=== PATIENT | female | born 1995 ===

== ENCOUNTER 2019-09-04 20:21 | Emergency (ER) | payer OTHER, SELFPAY ==
[2019-09-04 20:25] VITALS: BP 128/92; PULSE 101; RESP 18; TEMP 36.7; O2SAT 98
--- NOTE | 2019-09-04 20:35 | W.ED.GENAD ---
Discharge Plan Disposition Patient Disposition: HOME Condition: Good Discharge Details Chief Complaint: SOB Clinical Impression: Asthma exacerbation, Bronchitis ED Provider: Miguel Newsome Home Meds and New Rx's Prescriptions: New ipratropium-albuterol 0.5 mg-3 mg(2.5 mg base)/3 mL solution for nebulization 3 ml IH Q6H Qty: 90 RF: 0 prednisone 50 MG tablet 50 mg PO DAILY Qty: 5 RF: 0 Continued albuterol sulfate 1.25 mg/3 mL Solution For Nebulization 1.25 mg inhalation PRN PRN (Reason: Respiratory Distress) RF: 0 albuterol sulfate 90 mcg/actuation Hfa Aerosol Inhaler 2 puff INHALATION PRN PRN (Reason: Respiratory Distress) RF: 0 Discharge Instructions Instructions: Asthma (ED), Acute Bronchitis (ED) Additional Instructions: At this time your signs and symptoms are clinically consistent with asthma exacerbation and bronchitis. There is no evidence of pneumonia on your chest x-ray. Please take the steroid and nebulizer treatments as directed. If you notice any worsening of your symptoms, or any new symptoms such as vomiting, diarrhea, fever, chills, shortness of breath, chest pain, numbness, weakness, or fainting , please return immediately to the emergency department for reevaluation. Please follow up with your primary care provider as soon as possible for reassessment and reevaluation. As always, it was a pleasure participating in your medical care today. Medical Decision Making Is a pleasant 24-year-old female who presents today for evaluation of cough, productive green sputum, mild shortness of breath. Is been present for the last 2 to 3 days, but notably worse in the last 12 hours. No red flags of hemoptysis, history of PE or DVT, or first-degree family history of PE or DVT. No risk factors of exogenous estrogen. No other significant abnormalities. No fever chills nuchal rigidity. Lung sounds demonstrate mild wheeze in the right. Oxygen saturation stable, initial triage vital signs are 101 for heart rate but she is in the 80s on assessment during exam. 98% O2 sats, respirations 18. Signs and symptoms appear consistent with a mild asthma exacerbation. Potential pneumonia versus bronchitis. PE is unlikely and clinically inconsistent with current exam. We will give steroids, breathing treatment, and reassess. 9:20 PM Patient is feeling much better after breathing treatments and steroids. She feels ready to go home. Chest x-ray negative for acute process. Oxygen/air movement in the lungs improved on reassessment. Patient feels very well and continues to maintain oxygen saturations in the high 90s. Signs and symptoms at this time clinically inconsistent with PE, and consistent with mild asthma exacerbation. Will give prescription for nebulizer treatments for home. She does have her mother's nebulizer machine. Will give 5-day steroid burst. PERC and Wells score are in the lowest risk categories. Diagnosis bronchitis with asthma exacerbation. Discussed red flags which to return. I have extensively reviewed the treatment plan and discharge instructions with the patient. I have addressed all patient concerns at this time. The patient was made aware of what symptoms to monitor for that would warrant a return to the emergency department. Discussed the plan with the patient, they demonstrate verbal understanding and agreement with our assessment and plan at this time. FINDINGS: Lungs: Unremarkable. No consolidation. Pleural space: Unremarkable. No pleural effusion. No pneumothorax. Heart/Mediastinum: Unremarkable. No cardiomegaly. Bones/joints: Unremarkable. IMPRESSION: No acute findings. Dictated and Authenticated by: Bc Whitlock MD. Ordering:MENDEZ Rivera MD HPI General Date/Time Provider Initiated Documentation: 09/04/19 20:25. HPI Narrative: This is a 24-year-old female with no significant past medical history except for reactive airway disease who presents today for evaluation of shortness of breath and cough. Patient states that for the last 3 to 4 days she has had a mild cough with productive green sputum. She denies fever or chills. She has been taking some nebulizer treatments at home which are her mother's. This has been improving her symptoms however over the last 12 hours she has noticed a significant worsening of her symptoms. She feels that she is having a harder time catching her breath and the nebulizers are not doing as much as they were. She denies any significant pleuritic chest pain, arm neck or shoulder pain. Denies PE risk factors such as recent long car rides, immobilization, recent surgery, prior history of DVT or PE, family history of PE or DVT, morbid obesity, exogenous estrogen and smoking, hemoptysis, history of cancer. She denies any hemoptysis. She denies any recent trauma. No other complaints at this time. No other modifying factors. Related Data Home Medications Medication Instructions Recorded Confirmed albuterol sulfate 1.25 mg INHALATION PRN PRN 09/04/19 09/04/19 albuterol sulfate 2 puff INHALATION PRN PRN 09/04/19 09/04/19 ipratropium-albuterol 3 ml IH Q6H #90 ml 09/04/19 prednisone 50 mg PO DAILY #5 tab 09/04/19 Previous Rx's Medication Instructions Recorded ipratropium-albuterol 3 ml IH Q6H #90 ml 09/04/19 prednisone 50 mg PO DAILY #5 tab 09/04/19 Allergies Allergy/AdvReac Type Severity Reaction Status Date / Time codeine Allergy Severe Nausea Unverified 09/04/19 20:30 amoxicillin Allergy Intermediate Skin Rash Unverified 09/04/19 20:30 tomato Allergy Mild Other (See Unverified 09/04/19 20:33 Comment) General Stated Complaint: SOB ALFREDO: 3 Review of Systems All systems reviewed & are unremarkable except as noted in HPI and below [facility] Medical History (Updated 09/04/19 @ 20:29 by Anahy Rios) Asthma (Chronic) Social History Smoking/Tobacco Use Status: Never Alcohol Intake: never Drug use: Never Substance use type: does not use Do you feel safe at home: Yes Do you feel safe in your relationship?: Yes Exam Narrative Exam Narrative: 1.Const: Well-nourished, Well-developed, appearing stated age 2.Eyes: PERRL, no conjunctival injection, and symmetrical lids. 3.ENT: Atraumatic external nose and ears. Moist MM. Neck: Symmetric, trachea midline, No thyromegaly. 4.CVS: +S1/S2, No murmurs or gallops. Peripheral pulses 2+ and equal in all extremities. Brisk capillary refill in all extremities. 5.RESP: Unlabored respiratory effort. Mild wheeze in the right lower lung mei. No rhonchi, no rales. 6.GI: Soft, Nontender/Nondistended, No hepatosplenomegaly. No guarding or rebound. 7.MSK: Normocephalic/Atraumatic, Extremities w/o deformity or ttp No cyanosis or clubbing, Normal movement of all extremities, no calf tenderness 8.Skin: Warm, Dry. No rashes or lesions. 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 Sensation grossly intact, no focal neurologic deficits. 10.Psych: (AAO) x3. Appropriate mood and affect Course Vital Signs Vital signs: Vital Signs Temperature 36.7 C 09/04/19 20:25 Pulse 101 H 09/04/19 20:25 Respiratory Rate 18 09/04/19 20:25 Blood Pressure 128/92 H 09/04/19 20:25 Pulse Oximetry 98 09/04/19 20:25 Temperature 36.7 C 09/04/19 20:25 Temperature Source Skin 09/04/19 20:25 Pulse 101 H 09/04/19 20:25 Respiratory Rate 18 09/04/19 20:25 Blood Pressure 128/92 H 09/04/19 20:25 Pulse Oximetry 98 09/04/19 20:25 Pain Level 3 09/04/19 20:25
[2019-09-04] MEDS: predniSONE 20 MG TAB 60 MG PO (20:40)
--- NOTE | 2019-09-04 20:48 | DI.RAD_ITS ---
EXAM: XR CHEST 2V PA LATERAL INDICATION: cough, productive sputum, r/o pneumonia. COMPARISON: No exams were available for comparison TECHNIQUE: 2D digital imaging was performed. FINDINGS: Cardiac and mediastinal contours have a normal appearance. The lungs are well inflated and clear. No infiltrate or effusion is seen. IMPRESSION: Negative chest x-ray.
[2019-09-04] MEDS: Albuterol/Ipratropium 3 ML UPD VIAL 9 ML UPD (20:50)
--- NOTE | 2019-09-04 20:53 | DI.VRAD_ITS ---
PROCEDURE INFORMATION: Exam: XR Chest, 2 Views Exam date and time: 09/04/2019 8:48 PM Age: 24 years old Clinical indication: Cough; Additional info: Productive cough, R/O pneumonia TECHNIQUE: Imaging protocol: XR of the chest Views: 2 views. COMPARISON: No relevant prior studies available. FINDINGS: Lungs: Unremarkable. No consolidation. Pleural space: Unremarkable. No pleural effusion. No pneumothorax. Heart/Mediastinum: Unremarkable. No cardiomegaly. Bones/joints: Unremarkable. IMPRESSION: No acute findings. Dictated and Authenticated by: Bc Whitlock MD. Ordering:MENDEZ Rivera MD
[2019-09-04] MEDS: Albuterol/Ipratropium 3 ML UPD VIAL UPD (21:28)
[2019-09-04 21:29] VITALS: BP 123/61; PULSE 94; RESP 18; O2SAT 99
== END 2019-09-04 21:35 | disposition home or self-care (01) ==
LOC: ER 21:31
PROVIDERS: Emergency Provider Student in an Organized Health Care Education/Training Program
DX: J44.0 Chronic obstructive pulmonary disease with (acute) lower respiratory infection (principal); J20.9 Acute bronchitis, unspecified; J45.901 Unspecified asthma with (acute) exacerbation
CPT/HCPCS: 93005; 94640; 99284; 71046; 93010; 99283; J7512; J7620